=== PATIENT | female | born 1985 | race Caucasian/White ===

== ENCOUNTER 2018-04-05 06:26 | Inpatient (IN) ==
[2018-04-05] MEDS ORDERED: PITOCIN IVP ONE (06:32)
[2018-04-05] MEDS ORDERED: PHENERGAN INJ 25 MG IV PRN ×2 (06:32→11:14)
[2018-04-05] MEDS ORDERED: REGLAN INJ 10 MG VIAL IVP PRN (06:32)
[2018-04-05] MEDS ORDERED: D5LR 1L W PITOCIN 10 UNITS/L 10 UNITS/1,000 ML BAG IV PRN (06:32)
[2018-04-05] MEDS ORDERED: MORPHINE SULFATE INJ 2 MG INJ IVP PRN (06:32)
[2018-04-05] MEDS ORDERED: D5 1/2 NS 1000 ML 1,000 ML IV SCH (06:32)
[2018-04-05] MEDS ORDERED: D5 1/2 NS 1000 ML 1,000 ML IV ONE (06:35)
--- NOTE | 2018-04-05 07:25 | DR.OB ---
OB Quick Note - Assessment/Plan Assessment/Plan: L&D 04/05/18 at 6:55am S-No complaint. O-Afebrile,VSS [id number] with good LTV, +accel, no decel. CTX=mild, irregular CVX=3cm/75%/-1/VTX AROM with clear fluid. IUPC and FSE placed. A-IUP at 38 6/7 weeks for induction H/O CTX P-Begin pitocin induction Anticipate
[2018-04-05] MEDS ORDERED: NUBAIN INJ 10 ONE ×2 (08:18→10:26)
[2018-04-05] MEDS: NUBAIN INJ 200 MG VIAL MULTIDOSE IVP PRN ×2 (08:18→10:26)
[2018-04-05] MEDS ORDERED: LR 1000 ML IV 1,000 ML IV ONE (10:26)
[2018-04-05] MEDS ORDERED: ADRENALINE CHL INJ ONE (10:38)
[2018-04-05] MEDS ORDERED: FENTANYL INJ 100 mcg ONE (10:38)
[2018-04-05] MEDS ORDERED: NAROPIN EPIDURAL 0.2% + FENTANYL 90MCG 0 ML EPI ONE (10:39)
[2018-04-05] MEDS ORDERED: XYLOCAINE-MPF 1% ONE (10:39)
[2018-04-05] MEDS ORDERED: MOTRIN TAB 800 MG PO PRN (11:14)
[2018-04-05] MEDS: D5 1/2 NS 1000 ML 1,000 ML with PITOCIN 20 UNITS IV SCH ×2 (12:00)
[2018-04-05] MEDS ORDERED: D5 1/2 NS 1L W PITOCIN 20 UNITS/L 20 UNITS/1,000 ML BAG IV ONE (12:04)
[2018-04-05] MEDS ORDERED: AMBIEN PO PRN (12:08)
[2018-04-05] MEDS ORDERED: MILK OF MAGNESIA PO PRN (12:08)
[2018-04-05] MEDS ORDERED: ADACEL or BOOSTRIX TDaP VACCINE IM ONE (12:08)
[2018-04-05] MEDS ORDERED: DERMOPLAST SPRAY TOP PRN (12:08)
[2018-04-05] MEDS: PERCOCET TAB 5/325 MG PO PRN (15:37)
--- NOTE | 2018-04-05 17:47 | DR.OB ---
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 Head delivered over intact perineum. Nuchal cord x 1 reduced. Nose and mouth bulb suctioned. Body delivered over intact perineum. Cord clamped x 2 and cut. handed to attendant. Cord sent for gases. Placenta delivered spontaneously / intact / 3 vessel cord. No CVX / vaginal / perineal tears. Viable female infant, VTX/OA, wt=6'11' and 9/9, stable to NBN. Mother stable to RR. [id number].
[2018-04-05] MEDS: ZANTAC PO SCH (21:08)
[2018-04-06] MEDS: PERCOCET TAB 5/325 MG PO PRN ×2 (01:35→10:34)
[2018-04-06] MEDS: D5 1/2 NS 1000 ML 1,000 ML with PITOCIN 20 UNITS IV SCH ×6 (03:10→12:47)
[2018-04-06 05:14] LABS: HEMATOCRIT 32.8 % (36.0-47.0); HEMOGLOBIN 10.7 g/dL (12.0-16.0)
[2018-04-06] MEDS: ZANTAC PO SCH (08:16)
[2018-04-06] MEDS ORDERED: PRENATAL PLUS PO SCH (09:00)
[2018-04-06 12:10] VITALS: BP 123/76
== END 2018-04-06 02:25 | disposition home or self-care (01) | DRG 807 ==
LOC: LD 06:26 → MED/SURG 12:15
PROVIDERS: ADMIT Specialist; ATTEND Specialist
DX: O09.213 Supervision of pregnancy with history of pre-term labor, third trimester; Z37.0 Single live birth; Z01.818 Encounter for other preprocedural examination; O26.893 Other specified pregnancy related conditions, third trimester; Z3A.38 38 weeks gestation of pregnancy
CPT/HCPCS: 36415; 59409; 80048; 80307; 81001; 85014; 85018; 85025; 86592; 86850; 86900; 86901; 87086; A4216; A4222; S0197; G0434; J0171; J2300; J2550; J2590; J3010; J7120; S5010